=== PATIENT | male | born 1935 | race Caucasian/White ===

== ENCOUNTER 2023-12-23 12:48 | Emergency (ER) | payer MEDICARE, SELFPAY ==
--- NOTE | 2023-12-23 13:07 | ED.GENADULT ---
HPI - General Adult General Chief complaint: Upper Respiratory Infection Stated complaint: chills,deep cough,diarrhea Time Seen by Provider: 12/23/23 13:07 Source: patient Mode of arrival: ambulatory Limitations: no limitations History of Present Illness HPI narrative: 88-year-old male patient presents to the [facility] with complaints of cold symptoms that started today. Patient states he has had chills, congestion, runny nose and a cough. Patient denies fevers that he is aware of. Patient denies any abdominal pain, nausea, vomiting or diarrhea. Denies any shortness of breath at this time. Related Data Home Medications Medication Instructions Recorded Confirmed lovastatin 20 mg tablet 20 mg PO HS 12/23/23 12/23/23 Allergies Allergy/AdvReac Type Severity Reaction Status Date / Time No Known Allergies Allergy Verified 12/23/23 12:51 Review of Systems Review of Systems: CONSTITUTIONAL: Denies fever, Positive chills, or sweats. EYES: Denies visual changes, redness, or discharge. ENT: positive rhinorrhea, congestion, sore throat, or otalgia. CARDIOVASCULAR: Denies chest pain, palpitations, or edema. RESPIRATORY: positive cough denies dyspnea. GASTROINTESTINAL: Denies abdominal pain, nausea, vomiting, or diarrhea. GENITOURINARY: Denies dysuria or hematuria. SKIN: Denies rash or itching. MUSCULOSKELETAL: Denies back pain, joint pain, or myalgia. NEUROLOGIC: Denies headache, numbness, or weakness. PSYCHIATRIC: Denies anxiety or depression. PMFSH Past Medical History Medical History (Updated 12/23/23 @ 13:22 by MARIAH Cardzoa) Atrial fibrillation Hyperlipidemia Family History Family History Sibling Diabetes mellitus Father Cerebrovascular accident Family history of hearing loss Mother Family history of malignant neoplasm of stomach Comments At the time of my signature I agree with nursing past medical history, surgical, social, and family history. There is no relevant family history pertinent to the presenting complaint. Exam Narrative: GENERAL: Well-appearing, well-nourished, and in no acute distress. HEAD: Normocephalic, atraumatic. EYES: PERRLA and EOMI. ENT: Nares clear, no rhinorrhea or epistaxis. Mucous membranes moist. posterior pharynx no erythema, tonsillar enlargement, exudates or lesions present. NECK: Supple. No lymphadenopathy CHEST: Clear to auscultation. No respiratory distress. HEART: Regular rate and rhythm. No murmur heard. Normal peripheral pulses. ABDOMEN: Soft, nontender, nondistended, normal active bowel sounds. EXTREMITIES: Normal range of motion. No edema. SKIN: Warm, dry, no rash. NEURO: No focal deficits. Alert and oriented x3. Course Course Level of Care: Express Care Visit Vital Signs Vital signs: Vital Signs Temperature 36.9 C 12/23/23 13:11 Pulse Rate 77 12/23/23 13:11 Respiratory Rate 18 12/23/23 13:11 Blood Pressure 173/67 H 12/23/23 13:11 Pulse Oximetry 96 12/23/23 13:11 Oxygen Delivery Room Air 12/23/23 13:11 Temperature 36.9 C 12/23/23 13:11 Pulse Rate 77 12/23/23 13:11 Respiratory Rate 18 12/23/23 13:11 Blood Pressure 173/67 H 12/23/23 13:11 Pulse Oximetry 96 12/23/23 13:11 Oxygen Delivery Room Air 12/23/23 13:11 vital signs reviewed. The patient has been informed that they may have pre-hypertension or Hypertension based on a BP reading in the department. I recommend that the patient call the primary care provider listed on their discharge instructions or a physician of their choice this week to arrange follow up for further evaluation of possible pre-hypertension or Hypertension Medical Decision Making MDM Narrative Medical decision making narrative: notify patient he is positive today for COVID. Discussed with patient the risks and benefits of Paxlovid and he has opted to take the Paxlovid today. Discussed with patient he is
[2023-12-23 13:11] VITALS: BP 173/67; PULSE 77; RESP 18; TEMP 36.9; O2SAT 96
[2023-12-23 13:18] LABS: EDINFLUASCREEN Negative; EDINFLUBSCREEN Negative
== END 2023-12-23 13:24 | disposition home or self-care (01) ==
PROVIDERS: Emergency Provider Nurse Practitioner Family
DX: U07.1 COVID-19 (principal); I48.91 Unspecified atrial fibrillation; E78.5 Hyperlipidemia, unspecified
CPT/HCPCS: 87426; 87804; 99213; G0463